=== PATIENT | male | born 1960 | race Caucasian/White ===

== ENCOUNTER 2017-01-07 09:43 | Emergency (ER) | payer OTHER ==
[~2017-01-07] VITALS: Ht 165.1 cm; Wt 68.5 kg
[~2017-01-07 09:43] MED LIST: ATOR40TA68 PO; HYDR-3498 PO
[2017-01-07 09:48] VITALS: Ht 165.1 cm; Wt 68.5 kg
[2017-01-07] MEDS ORDERED: HYDROmorphONE 2 MG/ML SYG IV ONE (10:30)
[2017-01-07] MEDS ORDERED: ONDANSETRON 4 MG INJ IV ONE (10:30)
[2017-01-07] MEDS ORDERED: HYDROmorphONE 1 MG/ML SYG IV STA (10:47)
[2017-01-07] MEDS ORDERED: PROPOFOL 200 MG INJ IV ONE (11:00)
--- NOTE | 2017-01-07 11:26 | RADRPT ---
PROCEDURE: XR Right Shoulder. CLINICAL INDICATION: Trauma. Right shoulder pain. TECHNIQUE: Single frontal oblique view. COMPARISON: No prior study is available for comparison. FINDINGS: There is no fracture. There is an anterior inferior dislocation of the glenohumeral joint. The acr omioclavicular joint is unremarkable. The soft tissues are normal. The articular surfaces are otherwise intact. There is no lytic or blastic lesion. There is no radiopaque foreign body. IMPRESSION: 1. Anterior inferior dislocation of the glenohumeral joint. 2. No fracture. 3. Otherwise unremarkable study. Call report: A call report of the findings was made to Dr. Bunn on 01/07/2017 at 1120 hours. RPTAT: QQ .Luca Garcia MD, Date Time Electronically viewed and signed by .Luca Garcia MD, on 01/07/2017 11:26 .R/
[2017-01-07] MEDS ORDERED: HYDR-906 PO (12:04)
--- NOTE | 2017-01-07 12:09 | ERD ---
ER Documentation Chief Complaint Date/Time DATE: 01/07/17 TIME: 12:06 Chief Complaint RT SHOULDER/ARM/HAND PAIN S/P FROM FROM LADDER 5-FEET HPI This is a 56-year-old male who fell from a small ladder 4-5 feet high landing on his right shoulder. He had no head injury no loss of consciousness denies any headache neck pain focal neurological complaints. Is complaining of pain to his right shoulder described as sharp and worse with range of motion and he feels like his shoulder is dislocated. No numbness in the arm. No pain in his other extremities no back pain no chest pain abdominal pain or shortness of breath ROS All systems reviewed and are negative except as per history of present illness. Medications Home Meds Active Scripts Hydrocodone/Acetaminophen ([place] 5-325 Tablet) 1 Each Tablet, 1 EACH PO Q4 for PAIN, #20 TAB Prov:EDWIN PAK DO 01/07/17 Hydrocodone Bit-Acetaminophen* ([place]*) 5-325 Mg Tab, 1 TAB PO Q6 Y for PAIN, # 14 TAB Prov:SUHAIL CHRISTIANSEN MD 01/21/16 Reported Medications Atorvastatin* (Atorvastatin*) 40 Mg Tablet, 20 MG PO QHS, #30 TAB 04/23/16 Allergies Allergies: Coded Allergies: No Known Drug Allergies (Verified Allergy, Unknown, 04/23/16) PMhx/Soc History of Surgery: Yes (LT HERNIA) Anesthesia Reaction: No Hx Neurological Disorder: No Hx Respiratory Disorders: No Hx Cardiac Disorders: No Hx Psychiatric Problems: No Hx Miscellaneous Medical Probl: No Hx Alcohol Use: Yes (OCASS) Hx Substance Use: No Hx Tobacco Use: No (QUIT 30 YRS AGO) Smoking Status: Never smoker FmHx Family History: No coronary disease Physical Exam Vitals Vital Signs Date Time Temp Pulse Resp B/P Pulse Ox O2 Delivery O2 Flow Rate FiO2 01/07/17 09:48 97.2 62 20 123/63 99 Physical Exam Const: Well-developed, well-nourished Head: Atraumatic, normocephalic Eyes: Normal Conjunctiva, PERRLA, EOMI, normal sclera, no nystagmus ENT: Normal External Ears, Nose and Mouth, moist mucus membranes. Neck: Full range of motion. No meningismus, no lymphadenopathy. Resp: Clear to auscultation bilaterally, no wheezing, rhonchi, rales Cardio: Regular rate and rhythm, no murmurs, S1 S2 present Abd: Soft, non tender x 4, non distended. Normal bowel sounds, no guarding or rebound, no pulsitile abdominal masses or bruits Skin: No petechiae or rashes, no ecchymosis , no maculopapular rash Back: No midline or flank tenderness Ext: No cyanosis, or edema, FROM x 4, normal inspection, neurovascularly intact x 4, right shoulder has a anterior fullness suspect dislocation or fracture Neur: Awake and alert, STR 5/5 x 4, sensation intact x 4, no focal findings, cerebellum intact Psych: Normal Mood and Affect Results 24 hrs Current Medications Medications (Trade) Dose Ordered Sig/Santa Route PRN Reason Start Time Stop Time Status Last Admin Dose Admin Hydromorphone HCl (Dilaudid) 1 mg ONCE ONCE IV 01/07/17 10:30 01/07/17 10:31 DC 01/07/17 10:17 Ondansetron HCl (Zofran Inj) 4 mg ONCE ONCE IV 01/07/17 10:30 01/07/17 10:31 DC 01/07/17 10:17 Propofol (Diprivan) 100 mg ONCE ONCE IV 01/07/17 11:00 01/07/17 11:01 DC 01/07/17 10:55 Hydromorphone HCl (Dilaudid) 1 mg ONCE STAT IV 01/07/17 10:47 01/07/17 10:48 DC 01/07/17 10:54 Procedures/MDM PROCEDURE: XR Right Shoulder. CLINICAL INDICATION: Trauma. Right shoulder pain. TECHNIQUE: Single frontal oblique view. COMPARISON: No prior study is available for comparison. FINDINGS: There is no fracture. There is an anterior inferior dislocation of the glenohumeral joint. The acromioclavicular joint is unremarkable. The soft tissues are normal. The articular surfaces are otherwise intact. There is no lytic or blastic lesion. There is no radiopaque foreign body. IMPRESSION: 1. Anterior inferior dislocation of the glenohumeral joint. 2. No fracture. 3. Otherwise unremarkable study. Call report: A call report of the findings was made to Dr. Pak on 2016 at 1120 hours. RPTAT: QQ .Luca Garcia MD, Date Time Electronically viewed and signed by .Luca Garcia MD, on 01/07/2017 11:26 .R/ CC: EDWIN PAK DO X-ray Shoulder 3V Interpreted by me: Bones: No fracture] Joints: Anterior dislocation of the glenohumeral joint Foreign body: None Procedural Sedation: Pre-assessment performed. See preceding complete history and physical for details. Time out performed. See sedation documentation for details. Medication(s): Propofol Complications: No hypoxic or apneic events Recovered without incident. Greater than 15 minutes of face to face time included in sedation and recovery. Shoulder Reduction by me: Anesthesia: Propofol Location: Right shoulder Technique: Traction countertraction Results: Muslim of normal anatomic positioning Compl: Neurovascularly intact post procedure. Sling Assessment: Neurovascularly intact post sling placement with good fit. We will get repeat x-ray of shoulder if normal will discharge home per radiology 's reading He was given arm sling Departure Diagnosis: Primary Impression: Shoulder dislocation Encounter type: initial encounter Laterality: right Qualified Code: S43.004A - Shoulder dislocation, right, initial encounter Condition: Stable Patient Instructions: Dislocation: Shoulder (Reduced) Referrals: IGGY FERNANDEZ MD, APOSTOLOS A. DO Jan 07, 2017 12:09
--- NOTE | 2017-01-07 12:11 | RADRPT ---
PROCEDURE: XR Right Shoulder CLINICAL INDICATION: Post reduction TECHNIQUE: An AP and a Y-view were submitted. COMPARISON: To the study done earlier on the same date FINDINGS: Osseous structures: There is a mild Hill-Sachs depression involving the lateral right humeral head. The osseous elements otherwise appear intact. Joint spaces: The glenohumeral dislocation is been satisfactorily reduced. The AC joint appears norm al. Soft tissues: appear unremarkable. IMPRESSION: 1. Interval satisfactorily reduction of the glenohumeral dislocation. 2. Mild Hill-Sachs depression involving the lateral right humeral head. Physician Cl Date Time Electronically viewed and signed by Mc Chester Physician on 01/07/2017 12:11 /
[2017-01-07 12:52] VITALS: BP 128/79; PULSE 70; RESP 20
== END 2017-01-07 13:00 | disposition home or self-care (01) ==
LOC: E/R 09:43
DX: S43.004A Unspecified dislocation of right shoulder joint, initial encounter (principal); W11.XXXA Fall on and from ladder, initial encounter; Y92.9 Unspecified place or not applicable; Z87.891 Personal history of nicotine dependence
CPT/HCPCS: 23650; 73030; 96374; 96375; 96376; 99285; J1170; J2405